=== PATIENT | male | born 1975 | race Caucasian/White ===

== ENCOUNTER 2022-09-15 18:34 | Emergency (ER) | payer SELFPAY ==
[2022-09-15 18:48] VITALS: BP 121/72; PULSE 70; RESP 16; TEMP 37.1; O2SAT 99
--- NOTE | 2022-09-15 19:35 | XRR_ITS ---
PROCEDURE INFORMATION: Exam: XR Chest Exam date and time: 09/15/2022 7:44 PM Age: 46 years old Clinical indication: Sternal or substernal pain; Additional info: Cp TECHNIQUE: Imaging protocol: Radiologic exam of the chest. Views: 1 view. COMPARISON: No relevant prior studies available. FINDINGS: Lungs: Calcified granuloma in the right upper lobe. Lungs are clear bilaterally. Pleural spaces: No pleural effusion. No pneumothorax. Heart/Mediastinum: The cardiac silhouette and mediastinal contours are unremarkable. Bones/joints: Unremarkable for age. XR/XR chest 1V portable [id number] IMPRESSION: 1. No acute cardiopulmonary process. 2. Incidental/nonacute findings are listed in the report.
--- NOTE | 2022-09-15 19:36 | W.ED.ABDPA2 ---
HPI - Abdominal Pain General: Chief Complaint: Abdominal Pain Stated Complaint: abd pain Time Seen by Provider: 09/15/22 18:54 Source: patient Mode of arrival: ambulatory Limitations: no limitations History of Present Illness: 46-year-old male states that he been having some epigastric june pain off and on for a month. He states tonight after he ate he felt a burning sensation in middle of his abdomen last few hours he states that since resolved. He denies any chest pain he denies any shortness of breath. No history of any abdominal surgeries denies any fevers or vomiting or diarrhea. Associated Symptoms: Denies chills, dysuria and fever(s) Review of Systems Const: Denies: fever(s), chills, body aches or change in appetite Eyes: Denies: blurry vision or eye discomfort ENMT: Denies: throat pain or dental pain Card: Denies: chest pain Resp: Denies: dyspnea GI: Reports: abdominal pain : Denies: dysuria Musc: Denies: neck pain or back pain Skin/Breast: Denies: rash Neuro: Denies: headache(s) Psych: Denies: depression Patrick/Lymph: Denies: easy bruising All/Imm: Denies: urticaria PFSH ED PFSH: Medical History (Updated 09/15/22 @ 22:20 by Dejuan Matos MD) No pertinent past medical history Social History (Updated 09/15/22 @ 19:37 by Dejuan Matos MD) Substance/Drug Use: never Physical Exam Const: COMMON NORMALS: no acute distress, patient oriented x3 and healthy appearing HENMT: COMMON NORMALS: normocephalic and atraumatic HEAD & SCALP: normocephalic and atraumatic Eye: COMMON NORMALS: Equal, round and reactive pupils present and EOMs intact bilaterally PUPIL: Yes Equal, round and reactive pupils present Neck/C-Spine: COMMON NORMALS: full ROM and supple Chest: COMMONS NORMALS: normal inspection of the chest and normal palpation of entire chest wall Resp: COMMON NORMALS: normal respiratory effort, No retractions, No use of accessory muscles and clear to auscultation bilaterally AUSCULTATION: clear to auscultation bilaterally Cardio: COMMON NORMALS: regular rate, regular rhythm and No murmurs present (Cardio) RATE: regular rate RHYTHM: regular rhythm GI: COMMON NORMALS: Normal to inspection, nondistended, normoactive bowel sounds present, Soft to palpation, non-tender and no masses PALPATION: Yes Soft to palpation Extremity: COMMON NORMALS: normal to inspection and full ROM Neuro: COMMON NORMALS: patient oriented x3, moves all extremities and no focal motor deficits Psych: COMMON NORMALS: mental status grossly normal, Normal thought process present and cooperative THOUGHT PROCESS: Normal thought process present Skin: COMMON NORMALS: no rashes or lesions noted and no wounds GENERAL SKIN EXAM: no rashes or lesions noted Course Vital Signs: Vital signs: Vital Signs Temperature 98.7 F 09/15/22 18:48 Pulse Rate 49 L 09/15/22 21:30 Respiratory Rate 18 09/15/22 21:30 Blood Pressure 103/63 09/15/22 21:30 Pulse Oximetry 99 09/15/22 21:30 Oxygen Delivery Me thod 09/15/22 21:30 MDM - Abdominal Pain Medical Decision Making Patient presents with abdominal pain is likely gastritis patient's lab work ultrasound here are normal he has been pain-free here no signs of chest pain he is stable for discharge we will place him on Protonix he is to follow-up with surgery return if worsening he understands agrees to plan. Lab Data 09/15/22 19:52 09/15/22 19:52 Labs/Radiology: Radiology Impressions Chest X-Ray 09/15/22 19:35 IMPRESSION: 1. No acute cardiopulmonary process. 2. Incidental/nonacute findings are listed in the report. Laboratory Results WBC 6.2 10^3/uL (4.0-10.0) 09/15/22 19:52 RBC 5.18 10^6/uL (4.1-5.3) 09/15/22 19:52 Hgb 16.1 g/dL (11.7-16.6) 09/15/22 19:52 Hct 46.5 % (42.0-52.0) 09/15/22 19:52 MCV 89.8 fl (80-94) 09/15/22 19:52 MCH 31.1 pg (28.0-34.0) 09/15/22 19:52 MCHC 34.6 g/dL (30.0-36.0) 09/15/22 19:52 RDW 12.5 % (12.1-15.1) 09/15/22 19:52 Plt Count 224 10^3/cmm (130-400) 09/15/22 19:52 MPV 10.4 fL (7.4-10.4) 09/15/22 19:52 Neut % (Auto) 66.5 % 09/15/22 19:52 Lymph % (Auto) 22.2 % 09/15/22 19:52 [place] % (Auto) 8.2 % 09/15/22 19:52 Eos % (Auto) 1.8 % 09/15/22 19:52 Baso % (Auto) 1.1 % 09/15/22 19:52 Neut # (Auto) 4.14 10^3/uL (1.8-7.7) 09/15/22 19:52 Lymph # (Auto) 1.4 10^3/uL (0.8-4.8) 09/15/22 19:52 [place] # (Auto) 0.5 10^3/uL (0.2-0.9) 09/15/22 19:52 Eos # (Auto) 0.1 10^3/uL (0.0-0.8) 09/15/22 19:52 Baso # (Auto) 0.1 10^3/uL (0.0-0.1) 09/15/22 19:52 Nucleated RBC % (auto) 0 % 09/15/22 19:52 Nucleated RBCs # 0.0 /100WBC 09/15/22 19:52 Sodium 137 mmol/L (136-145) 09/15/22 19:52 Potassium 3.8 mmol/L (3.5-5.1) 09/15/22 19:52 Chloride 102 mmol/L (98-107) 09/15/22 19:52 Carbon Dioxide 28 mmol/L (22-29) 09/15/22 19:52 Anion Gap 10.8 (5-19) 09/15/22 19:52 BUN 12 mg/dL (6-20) 09/15/22 19:52 Creatinine 0.6 mg/dL (0.7-1.2) L 09/15/22 19:52 GFR Calculation 144.4 mL/min (90-130) H 09/15/22 19:52 Glucose 71 mg/dL (65-115) 09/15/22 19:52 Calculated Osmolality 282 mOsm/kg (285-295) L 09/15/22 19:52 Calcium 9.5 mg/dL (8.5-10.5) 09/15/22 19:52 Total Bilirubin 0.4 mg/dL (0.15-1.2) 09/15/22 19:52 AST 13 U/L (0-40) 09/15/22 19:52 ALT 12 U/L (0-41) 09/15/22 19:52 Alkaline Phosphatase 45 U/L (40-130) 09/15/22 19:52 Total Protein 6.6 g/dL (6.6-8.7) 09/15/22 19:52 Albumin 4.4 g/dL (3.5-5.2) 09/15/22 19:52 Globulin 2.2 g/dL (1.3-4.6) 09/15/22 19:52 Lipase 71 U/L (13-60) H 09/15/22 19:52 Discharge Plan Discharge Patient Disposition: Home Clinical Impression: Abdominal pain Prescriptions: New Protonix 40 mg tablet,delayed release (DR/EC) 40 mg PO DAILY Qty: 60 0RF Discharge Orders: Discharge ED (Routine); Ordered 09/15/22 Ordered By: Dejuan Matos Referrals: Pranav Shea DO [Physician] - 1-3 days Discharge Diet: Advance as tolerated Discharge Activity: Resume usual activity Patient Instructions: Abdominal Pain (ED) Coding Level of Care Code ED Librarian Helper for Chg Fwd Exam Comprehensive
[2022-09-15 19:55] VITALS: BP 105/62; PULSE 47; RESP 18; O2SAT 98
[2022-09-15 19:58] LABS: Basophils # 0.1 10^3/uL (0.0-0.1); Basophils % 1.1 %; Eosinophils # 0.1 10^3/uL (0.0-0.8); Eosinophils % 1.8 %; Hematocrit 46.5 % (42.0-52.0); Hemoglobin 16.1 g/dL (11.7-16.6); Lymphocytes # 1.4 10^3/uL (0.8-4.8); Lymphocytes % 22.2 %; Mean Corpuscular HGB Conc 34.6 g/dL (30.0-36.0); Mean Corpuscular Hemoglobin 31.1 pg (28.0-34.0); Mean Corpuscular Volume 89.8 fl (80-94); Mean Platelet Volume 10.4 fL (7.4-10.4); Monocytes # 0.5 10^3/uL (0.2-0.9); Monocytes % 8.2 %; Neutrophils # 4.14 10^3/uL (1.8-7.7); Neutrophils % 66.5 %; Nucleated Red Blood Cells % 0 %; Platelet Count 224 10^3/cmm (130-400); Red Blood Count 5.18 10^6/uL (4.1-5.3); Red Cell Distribution Width 12.5 % (12.1-15.1); White Blood Count 6.2 10^3/uL (4.0-10.0)
[2022-09-15 20:18] LABS: Alanine Aminotransferase 12 U/L (0-41); Albumin Level 4.4 g/dL (3.5-5.2); Alkaline Phosphatase 45 U/L (40-130); Anion Gap 10.8 (5-19); Aspartate Amino Transferase 13 U/L (0-40); Blood Urea Nitrogen 12 mg/dL (6-20); Calcium 9.5 mg/dL (8.5-10.5); Carbon Dioxide 28 mmol/L (22-29); Chloride 102 mmol/L (98-107); Globulin 2.2 g/dL (1.3-4.6); Glomerular Filtration Rate 144.4 mL/min (90-130); Glucose 71 mg/dL (65-115); Lipase 71 U/L (13-60); Osmolality Calculated 282 mOsm/kg (285-295); Potassium 3.8 mmol/L (3.5-5.1); Sodium 137 mmol/L (136-145); Total Bilirubin 0.4 mg/dL (0.15-1.2); Total Protein 6.6 g/dL (6.6-8.7)
[2022-09-15 21:30] VITALS: BP 103/63; PULSE 49; RESP 18; O2SAT 99
--- NOTE | 2022-09-15 21:42 | USR_ITS ---
PROCEDURE INFORMATION: Exam: US Abdomen, Limited; Right Upper Quadrant Exam date and time: 09/15/2022 9:52 PM Age: 46 years old Clinical indication: Abdominal pain; Epigastric; Additional info: Ruq pain TECHNIQUE: Imaging protocol: Real time ultrasound of the abdomen with image documentation. Limited exam focused on the right upper quadrant. COMPARISON: No relevant prior studies available. FINDINGS: Liver: The liver is unremarkable. Gallbladder: The gallbladder is unremarkable. No gallstones or intraluminal sludge. No gallbladder wall thickening. No pericholecystic fluid. Sonographic Ojeda's sign is negative per report from the chief ultrasound technologist. Biliary ducts: Normal. No stones. No dilation. Pancreas: The pancreas is unremarkable. No pancreatic ductal dilatation. Right kidney: The right kidney is unremarkable. Aorta: TheVisualized aorta is unremarkable. Inferior vena cava: Visualized IVC is unremarkable. Portal venous: Hepatopetal flow in the portal vein. Intraperitoneal space: No ascites. US/US gall bladder [id number] IMPRESSION: Unremarkable right upper quadrant ultrasound.
--- NOTE | 2022-09-17 10:27 | DCPLANNER ---
Addendum entered by Lina Kumar 09/18/22 15:17: manager market development received the following message from front office staff at general surgery regarding follow up appointment: I have spoke with patient, he is wanting to get set up with FA first.. Packet has been mailed! Original Note: manager market development had message to schedule a follow up appointment for patient with general surgery. manager market development sent patients information to the front office staff at general surgery. Patients information will be printed and reviewed. Clinic will call patient with appointment information.
== END 2022-09-15 22:45 | disposition home or self-care (01) ==
PROVIDERS: Emergency Provider Emergency Medicine
DX: R10.13 Epigastric pain (principal)
CPT/HCPCS: 71045; 76705; 80053; 83690; 85025; 99285